=== PATIENT | female | born 1985 | race Caucasian/White ===

== ENCOUNTER 2020-03-18 15:25 | Outpatient (REF) | payer OTHER, SELFPAY ==
[2020-03-18 16:01] LABS: Basophils Absolute Auto 0.1 X10*3/uL (0.0-0.2); Basophils Percent Auto 0.8 % (0-2); Eosinophils Absolute Auto 0.1 X10*3/uL (0.0-0.4); Eosinophils Percent Auto 1.8 % (0-4); Hematocrit 36.6 % (37-47); Hemoglobin 12.4 g/dl (12.0-16.0); Imm Gran Abs Auto 0.01 X10*3/uL (0.00-0.03); Imm Gran Pct Auto 0.1 % (0.0-0.4); Lymphocytes Absolute Auto 2.3 X10*3/uL (1.2-4.9); Lymphocytes Percent Auto 30.8 % (20-40); MANUAL DIFF FLAG NO; Mean Corpuscular HGB Conc 33.9 g/dl (31.0-35.0); Mean Corpuscular Hemoglobin 31.5 pg (27.0-33.0); Mean Corpuscular Volume 92.9 fL (80-98); Mean Platelet Volume 9.1 fL (9.4-12.3); Monocytes Absolute Auto 0.7 X10*3/uL (0.1-1.2); Monocytes Percent Auto 8.9 % (2-11); Neutrophils Absolute Auto 4.2 X10*3/uL (2.0-8.3); Neutrophils Percent Auto 57.6 % (45-73); Platelet Count 327 X10*3/uL (160-400); Red Blood Count 3.94 X10*6/uL (4.20-5.50); Red Cell Distribution Width 13.4 % (11.0-16.0); White Blood Count 7.3 X10*3/uL (4.8-10.8)
[2020-03-18 17:13] LABS: Alanine Aminotransferase 19 U/L (0-31); Albumin Level 4.3 g/dL (3.5-5.0); Alkaline Phosphatase 56 U/L (39-117); Anion Gap 12 (12-20); Aspartate Amino Transferase 23 U/L (5-31); Bilirubin Total 0.3 mg/dL (0.0-1.0); Blood Urea Nitrogen 12 mg/dL (9-16); C Reactive Protein 0.07 mg/dL (< or = 0.50); Calcium 9.1 mg/dL (8.4-10.2); Carbon Dioxide 25 mmol/L (22-29); Chloride 108 mmol/L (96-108); Estimated Glomerular Filt Rate > 60; Glucose Random 90 mg/dL (60-115); Sodium 141 mmol/L (135-145); Total Protein 6.8 g/dL (6.5-8.0)
[2020-03-18 17:20] LABS: Rheumatoid Factor < 15.0 IU/mL (<15.0)
[2020-03-18 17:32] LABS: Free T4 (Free Thyroxine) 1.02 ng/dL (0.71-1.85); Thyroid Stimulating Hormone 1.11 uIU/mL (0.32-4.0); Vitamin D 25-OH Total 16.9 ng/mL (>30)
[2020-03-18 17:36] LABS: Vitamin B12 235 pg/mL (200-900)
[2020-03-20 13:18] LABS: Anti Nuclear Antibody Screen NEGATIVE (NEGATIVE)
== END 2020-03-18 15:26 | disposition home or self-care (01) ==
LOC: HO.LAB 15:25
PROVIDERS: PCP Internal Medicine; Visit Provider Internal Medicine
DX: R63.4 Abnormal weight loss (principal); M79.10 Myalgia, unspecified site; J45.909 Unspecified asthma, uncomplicated
CPT/HCPCS: 36415; 80053; 82306; 82607; 84439; 84443; 85025; 86038; 86039; 86140; 86431

== ENCOUNTER 2020-08-05 05:55 | Emergency (ER) | payer OTHER, SELFPAY ==
--- NOTE | ~2020-08-05 | XR_ITS ---
EXAMINATION: CHEST AND LEFT RIBS CLINICAL INFORMATION: Left rib pain. COMPARISON: None TECHNIQUE: Chest 2 views. Left RIBS 3 views. FINDINGS: CHEST: Both lungs are fairly well-expanded and clear of acute process. Heart size and pulmonary vascularity is normal. No gross bony abnormality seen. LEFT RIBS: Multiple views of left ribs reveal no visible rib fracture or bony abnormality. The soft tissues are normal. XR/XR chest 2V IMPRESSION: Unremarkable chest exam. Unremarkable left rib exam.
--- NOTE | ~2020-08-05 | XR_ITS ---
EXAMINATION: CHEST AND LEFT RIBS CLINICAL INFORMATION: Left rib pain. COMPARISON: None TECHNIQUE: Chest 2 views. Left RIBS 3 views. FINDINGS: CHEST: Both lungs are fairly well-expanded and clear of acute process. Heart size and pulmonary vascularity is normal. No gross bony abnormality seen. LEFT RIBS: Multiple views of left ribs reveal no visible rib fracture or bony abnormality. The soft tissues are normal. XR/XR ribs LT 2V IMPRESSION: Unremarkable chest exam. Unremarkable left rib exam.
[2020-08-05 06:21] VITALS: BP 108/63; PULSE 78; RESP 20; TEMP 36.4; O2SAT 99; BMI 24.6
[2020-08-05] MEDS: Ketorolac Tromethamine 15 MG/ML VIAL IM (06:37)
--- NOTE | 2020-08-05 06:55 | ED_ITS ---
HPI - General Adult General Chief complaint: General Medical Stated complaint: Back pain, SOB Time Seen by Provider: 08/05/20 06:31 Source: patient Mode of arrival: ambulatory Limitations: no limitations History of Present Illness HPI narrative: Patient is a [employer]PRES[employer]IVE in a [employer]. slipped and injured her left ribs, 2 days ago. Onset (ago): day(s) Location: chest Radiation: non-radiation Severity: mild Quality: aching Pain Consistency: intermittent Exacerbating factors: movement Associated symptoms: cough Related Data Previous Rx's Medication Instructions Recorded cyclobenzaprine 10 mg PO TID #10 tab 08/05/20 naproxen [Naprosyn] 500 mg PO BID #20 tab 08/05/20 Allergies Allergy/AdvReac Type Severity Reaction Status Date / Time montelukast [From SINGULAIR] Allergy Unknown TACHYCARDIA Unverified 11/28/19 15:45 Penicillins [PENICILLINS] Allergy Unknown UNKNOWN Unverified 11/28/19 15:45 Review of Systems Constitutional: Constitutional: Reports no additional constitutional complaints Eyes: Eyes: Reports no additional eye complaints ENT: Denies dizziness Cardiovascular: Cardiovascular: Reports no additional cardiovascular complaints Respiratory: Respiratory: Reports as per HPI Gastrointestinal: Gastrointestinal: Reports no additional gastrointestinal complaints Genitourinary: Genitourinary: Reports no additional female genitourinary complaints Musculoskeletal: Musculoskeletal: Reports no additional musculoskeletal complaints Integumentary/Breasts: Skin/Breast: Denies rash Neurologic: Reports system reviewed and no additional complaints, except as documented, Denies dizziness and Denies Sensory deficit (Neuro) Psychiatric: Psychiatric: Denies anxiety [facility] Past Medical History Medical History Anxiety Arthritis Asthma Depression Tension headache Social History Social History Advance Directives: No Patient : No Physical Exam Vital Signs: Vital Signs: Last Vital Signs Temp 97.6 F 08/05/20 06:21 Pulse 88 08/05/20 07:24 Resp 15 08/05/20 07:24 BP 94/57 L 08/05/20 07:24 Pulse Ox 98 08/05/20 07:24 Body Mass Index 24.6 Const: Other: pain out of proportion to physical findings General: healthy appearing Nutritional Appearance: average body habitus Orientation/consciousness: oriented to person and patient oriented x3 Limitations: no limitations HENMT: Head: Yes normal to inspection Ears: external ears normal General nose exam: Normal external nose present Mouth: Normal oral and palatal mucosa present and oropharynx normal Throat: Yes posterior oropharynx normal Eyes: General: appearance normal, both eyes and all related structures Neck: Other: supple Neck: Yes normal visual inspection Chest: Other: left ribs with posterior tenderness, no crepitance Resp: Auscultation: clear to auscultation bilaterally Cardio: Jugular venous distension: no JVD Rate: regular rate Rhythm: regular rhythm Heart sounds: S1 normal heart sound present and S2 normal heart sound present GI: Inspection: Yes normal to inspection Palpation (GI): Soft to palpation, nontender and No hepatosplenomegaly present Auscultation: normal bowel sounds : General: Yes no CVA tenderness Back/Spine/Pelvis: Back: no CVA tenderness Skin: General skin exam: no rashes or lesions noted Neuro: General: oriented to person and patient oriented x3 Cranial nerves: Yes CN's II-XII intact bilaterally Motor exam (neuro): 5/5 motor strength present throughout Sensory Exam: No Sensory deficit (Neuro) Extrem: General: Yes normal to inspection Psych: Appearance: grossly normal Course Course Course Narrative: no fractures, UA negative. Will start NSAIDS and flexeril Medical Decision Making Lab Data Labs: Lab Results 08/05/20 08/05/20 Range/Units 07:30 07:30 Urine Color YELLOW Urine Appearance CLOUDY Urine pH 7.0 (5.0-8.0) Ur Specific [place] 1.010 (1.005-1.025) Urine Protein NEG (NEG-TRACE) MG/DL Urine Glucose (UA) NEG (NEG) MG/DL Urine Ketones NEG (NEG) MG/DL Urine Blood NEG (NEG) Urine Nitrite NEG (NEG) Ur Leukocyte Esterase NEG (NEG) Urine Test NEGATIVE (NEGATIVE) Imaging Data Chest x-ray: Radiologist's impression: IMPRESSION: Unremarkable chest exam. Unremarkable left rib exam. ribs: Radiologist's impression: IMPRESSION: Unremarkable chest exam. Unremarkable left rib exam. Discharge Plan Discharge Clinical Impression: Back pain Qualifiers: Back pain location: thoracic back pain Chronicity: acute Back pain laterality: left Qualified Code(s): M54.6 - Pain in thoracic spine Patient Disposition: Home, Self-Care Instructions: Back Pain (ED) Prescriptions: New cyclobenzaprine 10 mg tablet 10 mg PO TID Qty: 10 RF: 0 naproxen [Naprosyn] 500 mg tablet 500 mg PO BID Qty: 20 RF: 0 Referrals: Alexandre Sheets MD [Primary Care Provider] - 10 days
[2020-08-05 07:24] VITALS: BP 94/57; PULSE 88; RESP 15; O2SAT 98
[2020-08-05 07:46] LABS: Glucose Urine UA NEG (NEG); Leukocyte Esterase Urine NEG (NEG); Nitrite Urine NEG (NEG); Urine Blood NEG (NEG); Urine Ketones NEG (NEG); Urine Protein NEG (NEG-TRACE)
[2020-08-05 07:47] LABS: Appearance Urine CLOUDY; Color Urine YELLOW
[2020-08-05 07:48] LABS: UPreg QC Valid YES; Urine Pregnancy NEGATIVE (NEGATIVE)
== END 2020-08-05 08:31 | disposition home or self-care (01) ==
PROVIDERS: Student in an Organized Health Care Education/Training Program; Emergency Provider Emergency Medicine; PCP Internal Medicine
DX: M54.6 Pain in thoracic spine (principal); M54.5 Low back pain; R06.02 Shortness of breath; R07.81 Pleurodynia; Z79.899 Other long term (current) drug therapy
CPT/HCPCS: 71046; 71100; 81003; 81025; 96372; 99284; J1885

== ENCOUNTER 2020-10-16 07:51 | Emergency (ER) | payer OTHER, SELFPAY ==
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
[2020-10-16 08:01] VITALS: BP 112/39; PULSE 88; RESP 18; TEMP 36.8; O2SAT 99; BMI 25.0
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
[2020-10-16 10:04] LABS: Appearance Urine CLEAR; Color Urine YELLOW; Glucose Urine UA NEG (NEG); Leukocyte Esterase Urine NEG (NEG); Nitrite Urine NEG (NEG); PH 6.5 (5.0-8.0); Urine Blood NEG (NEG); Urine Ketones NEG (NEG); Urine Protein NEG (NEG-TRACE)
[2020-10-16 10:06] LABS: UPreg QC Valid YES; Urine Pregnancy NEGATIVE (NEGATIVE)
[2020-10-16] MEDS: Ketorolac Tromethamine 15 MG/ML VIAL 30 MG IM (10:33)
== END 2020-10-16 11:43 | disposition home or self-care (01) ==
PROVIDERS: Physician Assistant; Emergency Provider Emergency Medicine Emergency Medical Services; PCP Internal Medicine
DX: M54.5 Low back pain (principal)
CPT/HCPCS: 72100; 81003; 81025; 96372; 99284; J1885